=== PATIENT | female | born 1995 | race Hispanic/Latino ===

== ENCOUNTER 2017-04-27 14:37 | Emergency (ER) | payer OTHER ==
[~2017-04-27] VITALS: Ht 152.4 cm; Wt 55.3 kg
[2017-04-27] MEDS ORDERED: IBUPROFEN 400 MG TAB PO ONE (19:15)
== END 2017-04-27 19:20 | disposition home or self-care (01) ==
LOC: FSED 14:37
DX: S61.254A Open bite of right ring finger without damage to nail, initial encounter (principal); W54.0XXA Bitten by dog, initial encounter; Y93.89 Activity, other specified; Y92.008 Other place in unspecified non-institutional (private) residence as the place of occurrence of the external cause
CPT/HCPCS: 99283